=== PATIENT | male | born 1945 | race Hispanic/Latino ===

== ENCOUNTER 2017-02-18 06:30 | Day surgery (SDC) | payer MEDICARE, OTHER ==
[2017-02-18 07:15] VITALS: BMI 29.5
[2017-02-18 07:33] VITALS: TEMP 97.8
[2017-02-18] MEDS ORDERED: Lidocaine Hydrochloride 5 ML INJ ONE (07:56)
[2017-02-18] MEDS ORDERED: Propofol 10 mg/ml Inj (20 ML) ONE ×2 (07:56→09:04)
[2017-02-18] MEDS ORDERED: Lactated Ringer's 500 ML IV SCH (08:00)
[2017-02-18] MEDS ORDERED: Lactated Ringer's 1,000 ML IV ONE (08:40)
--- NOTE | 2017-02-18 08:40 | CP.SDSHP ---
Same Day Surgery H & P - History Proposed Procedure: Colonoscopy Pre-Op Diagnosis: history of polyps - Previous Medical/Surgical History Cardiac: Hypertension Previous Surgical History: sinus surgery - Allergies Allergies: Allergies No Known Allergies Allergy (Verified 02/18/17 07:14) - Current Medications Current Medications: see reconciliation sheet - Physical Exam General Appearance: WD WN male in NAD Vital Signs: Vital Signs 02/18/17 07:00 Temperature 97.8 F Pulse Rate 80 Respiratory 20 Rate Blood Pressure 172/82 H O2 Sat by Pulse 97 Oximetry Mental Status: Alert & Oriented x3 Neuro: WNL Heart: WNL Lungs: WNL GI: WNL - {Optional Preform as Required} Abdomen: WNL - Impression Impression: History of colon polyps Pt. Evaluated Today:Candidate for Anesthesia & Procedure: Yes - Date & Time Date: 02/18/17 Time: 08:40 Short Stay Discharge - Short Stay Discharge Admitting Diagnosis/Reason for Visit: P/H/ COLONIC POLYPS Disposition: HOME/ ROUTINE Referrals: Bhanu Dallas DO [Primary Care Provider] -
[2017-02-18 09:49] VITALS: O2SAT 99
[2017-02-18 10:27] VITALS: BP 147/81; PULSE 75; RESP 15
== END 2017-02-18 10:18 | disposition home or self-care (01) ==
LOC: C.ENDO 06:30
PROVIDERS: ATTEND Internal Medicine Gastroenterology
DX: Z12.11 Encounter for screening for malignant neoplasm of colon (principal); K57.30 Diverticulosis of large intestine without perforation or abscess without bleeding; Z86.010 Personal history of colon polyps; R03.0 Elevated blood-pressure reading, without diagnosis of hypertension; D12.3 Benign neoplasm of transverse colon; D12.2 Benign neoplasm of ascending colon; D12.0 Benign neoplasm of cecum
CPT/HCPCS: 45385; 88305; J2704; J7120